=== PATIENT | male | born 1970 | race Caucasian/White ===

== ENCOUNTER 2021-04-26 10:26 | Outpatient (REF) | payer MEDICAID, SELFPAY ==
--- NOTE | ~2021-04-26 | XR_ITS ---
EXAMINATION: XR LUMBAR SPINE XR HIP, LEFT CLINICAL INFORMATION: Pain. COMPARISON: Lumbar spine radiographs dated 05/31/2010. TECHNIQUE: AP, lateral, and coned-down views of the lumbar spine. AP and frog-leg lateral views of the left hip. FINDINGS: Lumbar Spine: Normal vertebral body alignment. The lumbar lordosis is maintained. No acute fracture or subluxation. No loss of vertebral body height. Loss of intervertebral disc height with anterior endplate osteophytes at L1-L2, L2-L3, and L5-S1. Additional tiny anterior endplate osteophytes. Mild bilateral facet arthropathy at L4-L5 and L5-S1. No lytic or blastic osseous lesion. No abnormal soft tissue calcification. Left Hip: No acute fracture or dislocation. Mild joint space narrowing with acetabular subchondral sclerosis and tiny marginal osteophytes. No osseous erosion. Phleboliths within the pelvis. XR/XR hip LT min 2V IMPRESSION: LUMBAR SPINE: Mild multilevel degenerative disc disease as well as bilateral facet arthropathy at L4-L5 and L5-S1, new/increased when compared to the prior examination. LEFT HIP: Mild osteoarthritis.
--- NOTE | ~2021-04-26 | XR_ITS ---
EXAMINATION: XR LUMBAR SPINE XR HIP, LEFT CLINICAL INFORMATION: Pain. COMPARISON: Lumbar spine radiographs dated 05/31/2010. TECHNIQUE: AP, lateral, and coned-down views of the lumbar spine. AP and frog-leg lateral views of the left hip. FINDINGS: Lumbar Spine: Normal vertebral body alignment. The lumbar lordosis is maintained. No acute fracture or subluxation. No loss of vertebral body height. Loss of intervertebral disc height with anterior endplate osteophytes at L1-L2, L2-L3, and L5-S1. Additional tiny anterior endplate osteophytes. Mild bilateral facet arthropathy at L4-L5 and L5-S1. No lytic or blastic osseous lesion. No abnormal soft tissue calcification. Left Hip: No acute fracture or dislocation. Mild joint space narrowing with acetabular subchondral sclerosis and tiny marginal osteophytes. No osseous erosion. Phleboliths within the pelvis. XR/XR lumbar spine 4V min IMPRESSION: LUMBAR SPINE: Mild multilevel degenerative disc disease as well as bilateral facet arthropathy at L4-L5 and L5-S1, new/increased when compared to the prior examination. LEFT HIP: Mild osteoarthritis.
== END 2021-04-26 10:27 | disposition home or self-care (01) ==
LOC: HO.XRAY 10:26
PROVIDERS: Absent Provider Internal Medicine; PCP Internal Medicine; Visit Provider General Practice
DX: M54.89 Other dorsalgia (principal)
CPT/HCPCS: 72110; 73502

== ENCOUNTER 2021-07-14 02:08 | Emergency (ER) | payer MEDICAID, SELFPAY ==
--- NOTE | ~2021-07-14 | XR_ITS ---
EXAMINATION: XR FOOT, RIGHT CLINICAL INFORMATION: Toe pain COMPARISON: None TECHNIQUE: AP, lateral, and oblique views of the right foot. FINDINGS: Osseous alignment is anatomic. No acute fracture is seen. No significant focal soft tissue abnormality identified. XR/XR foot RT min 3V IMPRESSION: No acute findings.
[2021-07-14 02:16] VITALS: BP 154/82; PULSE 69; RESP 20; TEMP 36.6; O2SAT 98; BMI 30.4
--- NOTE | 2021-07-14 02:41 | ED_ITS ---
HPI - Extremity Injury (Lower) General Chief Complaint: Extremity Injury, Lower Stated Complaint: broken toe Time Seen by Provider: 07/14/21 02:19 Source: patient Mode of arrival: ambulatory History of Present Illness HPI Narrative: 51-year-old male presents 2nd toe of the right foot pain after hitting it on a wooden stool. Patient was able to initially go to sleep, but then woke up with the toe throbbing. Patient denies any medical conditions. Related Data Allergies Allergy/AdvReac Type Severity Reaction Status Date / Time No Known Allergies Allergy Verified 07/14/21 02:25 Review of Systems Review of Systems: Pertinent positives and negatives as stated in HPI 10 point review of systems is otherwise negative. PMFSH Past Medical History Source: nursing notes reviewed Social History Social History Advance Directives: No Advance Directives Information Provided: Yes Physical Exam Vital Signs: Vital Signs: Last Vital Signs Temp 97.8 F 07/14/21 02:16 Pulse 69 07/14/21 02:16 Resp 20 07/14/21 02:16 BP 154/82 H 07/14/21 02:16 Pulse Ox 98 07/14/21 02:16 BMI result Body Mass Index 30.4 VITAL SIGNS: Reviewed. GENERAL: Well developed, well nourished, in no acute distress. HEAD: Normocephalic/atraumatic EYES: PERRLA, EOMI OROPHARYNX: no oral lesions noted, posterior pharynx clear LUNGS: Normal breath sounds. SpO2<98> CARDIOVASCULAR: Regular rate and rhythm without noted murmurs ABDOMEN: Soft, non-tender, non-distended with bowel sounds. RIGHT FOOT: 2nd toe purplish bruising without noted deformity, but edema. Capillary refill less than 3 seconds and palpable DP/PT with sensation intact NEUROLOGIC: Alert and oriented x 4. Course Course Course Narrative: 51-year-old male with history and clinical presentation consistent with likely no on fracture of 2nd toe of right foot. Patient given combination analgesics for pain control. Review of all investigations negative for any acute findings and on re- evaluation patient has had some reduction in pain to that toe. He was encouraged to follow-up with his primary care provider in the next 1-2 days. Discharge Plan Discharge Clinical Impression: Pain and swelling of toe of right foot Patient Disposition: Home, Self-Care Instructions: Swollen Joint (ED) Additional Instructions: 1. Tylenol 1000 mg, orally, every 6 hours as needed for pain control. Do not exceed 4000 mg within 24 hours. 2. Ibuprofen 400 mg, orally with milk or food, every 6 hours as needed for pain control. Take this medication with Tylenol for increased symptom relief. 3. Recommend curtis taping your 2nd and 3rd toes together for added support. 4. Follow-up with your primary care provider in the next 2-3 days for re- evaluation further outpatient management. Return to the ER for acute worsening of symptoms.
[2021-07-14] MEDS: Acetaminophen 325 MG TABLET 975 MG PO (02:45)
== END 2021-07-14 03:30 | disposition home or self-care (01) ==
PROVIDERS: Emergency Provider Student in an Organized Health Care Education/Training Program
DX: M79.674 Pain in right toe(s) (principal); M79.89 Other specified soft tissue disorders
CPT/HCPCS: 73630; 99283

== ENCOUNTER 2021-09-08 17:22 | Emergency (ER) | payer MEDICAID, SELFPAY ==
[2021-09-08 17:27] VITALS: BP 167/81; PULSE 80; RESP 18; TEMP 36.6; O2SAT 96; BMI 34.3
--- NOTE | 2021-09-08 18:07 | ED_ITS ---
HPI - General Adult General Chief complaint: General Medical Stated complaint: accidently drank dish liquid Time Seen by Provider: 09/08/21 17:52 Source: patient Mode of arrival: ambulatory Limitations: no limitations History of Present Illness HPI narrative: Patient is a 51-year-old male presenting to the emergency department after accidentally ingesting dish detergent liquid 1 hour ago. He reports that he was washing dishes and put a drop of dish liquid into a glass, reports that he then got distracted and wanted to take Tylenol for headache at which point he filled that glass with water and then drink it. He reports only consuming 1 sip before tasting it then stopped. Currently, he is reporting that his throat feels itchy. Denies swelling lips tongue, throat. Denies choking sensation, neck pain, chest pain, palpitations, shortness of breath, nausea, vomiting, abdominal pain. He reports that he has not had anything additional to eat or drink since this occurred. Related Data Allergies Allergy/AdvReac Type Severity Reaction Status Date / Time No Known Allergies Allergy Verified 07/14/21 02:25 Review of Systems Verdana 4l Review of Systems: Verdana 4d [place] 4Bd Constitutional: [place] 4d No fever, chills, weakness or fatigue. [place] 4Bd HEENT: + throat irritation. [place] 4d No blurred vision, double vision. No sneezing, congestion, runny nose. [place] 4Bd Skin: [place] 4d No rash or itching. [place] 4Bd4Bd Cardiovascular: No chest pain, chest pressure or chest discomfort. No palpitations or pedal edema. Respiratory: No shortness of breath, cough or sputum production. Gastrointestinal: No anorexia, nausea, vomiting or diarrhea. No abdominal pain or blood in stool. Neurologic: No headache, dizziness, syncope, numbness or tingling in the extremities. Musculoskeletal: No muscle pain, back pain, joint pain or stiffness. Hematologic: No bleeding or bruising. Psychiatric:No depression or anxiety. Yes all other systems are reviewed and are negative PMFSH Past Medical History Attestation statement: The following information was validated with the patient. Social History Social History Advance Directives: No Advance Directives Information Provided: No Physical Exam Verdana 4l Vital Signs: Verdana 4d Verdana 4d Vital Signs: Verdana 4d Ver[place] 4Bd Last Vital Signs Verdana 4d [place] New 4d [place] New 4d Temp 97.9 F 09/08/21 17:27 [place] New 4d Pulse 80 09/08/21 17:27 [place] New 4d Resp 18 09/08/21 17:27 BP 167/81 H 09/08/21 17:27 Pulse Ox 96 09/08/21 17:27 BMI result Body Mass Index 34.3 Vital signs have been reviewed as normal and appeared to be correct. Blood pressure normal.? Heart rate normal.? Respiration rate normal. Temperature normal.? Oxygen saturation normal. Appearance: Alert.?Oriented to person, place and time. No acute distress.?Normal affect.? Head: Normocephalic, atraumatic. Eyes: Sclera white, conjunctiva pink. PERRL, 3 mm bilaterally. Nose: Nasal mucosa pink and moist with midline septum, nares patent bilaterally.? Mouth/ Throat: Oral mucosa pink and moist without lesions. Pharynx without erythema, tonsils symmetric, no adenopathy.? Neck: Normal inspection.? Neck supple.?? CVS: Heart sounds normal. Normal heart rate and rhythm.? Pulses normal.?? Respiratory: No respiratory distress.? Lung sounds clear to auscultation bilaterally?? Abdomen: Soft and non-tender. Normoactive bowel sounds. Skin: Skin warm and dry.? Normal skin color.? ? Extremities: No lower extremity edema.? Neuro: Moves all extremities spontaneously. Sensation intact bilaterally. No focal neuro deficits. Ambulates with normal steady gait. Course Course Course Narrative: Patient is a 51-year-old male being evaluated after ingesting very small amount of dish detergent liquid. He is nontoxic appearing, not tachycardic, no apparent respiratory distress. He is able to manage his airway, swallow secretions, and is not experiencing any nausea, persistent vomiting, or abdominal pain. He has no angioedema, pharyngeal erythema or ulcerations. It is unlikely that the amount consumed has caused any burning or ulcerations the oropharynx or esophagus. The itching sensation is experiencing is most likely due to localized irritation. I offered the patient Benadryl while in the emergency department, however reports that he drove himself here does not want to become sleepy, would prefer to take this at home. Patient able to tolerate a p.o. trial including food and liquids without complication. Discussed with patient reasons to return to the emergency department including mouth throat swelling, difficulty breathing, was persistent cough, shortness of breath chest pain, palpitations nausea persistent vomiting, abdominal pain, diarrhea, or any new or worsening symptoms or concerns. Patient be discharged home, questions answered, and he is agreeable with plan. Discharge Plan Discharge Clinical Impression: Ingestion of toxic substance Patient Disposition: Home, Self-Care Additional Instructions: You were evaluated in the emergency department after ingesting a small amount of additional liquid. As we discussed, you may use Benadryl as needed for the itching sensation shows persistent. You were able to tolerate eating and drinking while you were here which is very reassuring. As we discussed, please return to the emergency department if you develop mouth or throat swelling, difficulty breathing, persistent cough, shortness of breath, chest pain, palpitations, nausea, persistent vomiting, abdominal pain, diarrhea, or any new or worsening symptoms or concerns. Discharge Date/Time: 09/08/21 18:45
== END 2021-09-08 18:45 | disposition home or self-care (01) ==
PROVIDERS: Emergency Provider Emergency Medicine Emergency Medical Services; PCP Internal Medicine
DX: T65.891A Toxic effect of other specified substances, accidental (unintentional), initial encounter (principal); L29.9 Pruritus, unspecified; Y92.039 Unspecified place in apartment as the place of occurrence of the external cause
CPT/HCPCS: 99283

== ENCOUNTER 2022-09-26 08:05 | Outpatient (REF) | payer MEDICAID, SELFPAY ==
--- NOTE | ~2022-09-26 | XR_ITS ---
EXAMINATION: XR KNEE, LEFT CLINICAL INFORMATION: Injury to the left lower leg COMPARISON: None TECHNIQUE: Four views of the left knee. FINDINGS: No fracture or subluxation. Compartmental joint spaces are maintained. No joint effusion. The soft tissues are unremarkable. XR/XR knee LT 4V IMPRESSION: Normal left knee.
== END 2022-09-26 08:06 | disposition home or self-care (01) ==
LOC: HO.XRAY 08:05
PROVIDERS: PCP Internal Medicine; Visit Provider Pediatrics
DX: S89.92XA Unspecified injury of left lower leg, initial encounter (principal)
CPT/HCPCS: 73564

== ENCOUNTER → 2022-10-30 09:04 | Outpatient (BNVA) | payer MEDICAID, SELFPAY | PROVIDERS: PCP Internal Medicine; Visit Provider Orthopaedic Surgery | DX: M25.562 Pain in left knee (principal) | CPT/HCPCS: 99202 ==

== ENCOUNTER 2022-12-29 12:52 | Outpatient (REF) | payer MEDICAID, SELFPAY ==
--- NOTE | ~2022-12-29 | MR_ITS ---
EXAMINATION: MR KNEE WITHOUT CONTRAST, LEFT CLINICAL INFORMATION: Left knee pain and swelling following an injury. COMPARISON: Left knee radiographs dated 09/26/2022. TECHNIQUE: MRI of the knee without contrast was performed using routine sequences on a high-field scanner. FINDINGS: MENISCI: Medial Meniscus: Somewhat linear increased T2 signal within the intrasubstance of the meniscal body with possible extension to the inner margin which could indicate a nondisplaced tear. Lateral Meniscus: Intact LIGAMENTS: Cruciate: Intact Collateral: Mild edema adjacent to the medial collateral ligament consistent with a grade 1 sprain/partial tear. Intact fibular collateral ligament. EXTENSOR MECHANISM: Intact ARTICULAR CARTILAGE/BONE: Patellofemoral Compartment: Superior central trochlear articular cartilage full-thickness fissuring measuring up to 0.9 cm in craniocaudal dimension with minimal subchondral cystic change. Tiny marginal osteophytes. Medial Compartment: Focal, near full-thickness articular cartilage loss at the weight-bearing medial femoral condyle measuring approximately 1.4 x 0.9 cm (AP by ML). Just posterior and medial to this area, there is focal subchondral low T1/low T2 signal with prominent underlying marrow edema, consistent with a nondisplaced subchondral fracture. Lateral Compartment: Intact articular cartilage. JOINT FLUID AND BURSAE: Small joint effusion and small Mandel's cyst with mild synovitis. MR/MR knee LT wo con IMPRESSION: 1. Possible nondisplaced inner margin tear of the medial meniscal body. 2. Grade 1 sprain/partial tear of the medial collateral ligament. 3. Focal, near full-thickness articular cartilage loss at the weightbearing medial femoral condyle measuring up to 1.4 x 0.9 cm. Adjacent nondisplaced subchondral fracture with prominent underlying marrow edema at the weight-bearing medial femoral condyle. 4. Mild patellofemoral osteoarthritis. Small joint effusion and small Mandel's cyst with mild synovitis.
== END 2022-12-29 12:53 | disposition home or self-care (01) ==
LOC: HO.MRI 12:52
PROVIDERS: PCP Internal Medicine; Visit Provider Family Medicine
DX: M25.562 Pain in left knee (principal); G89.29 Other chronic pain
CPT/HCPCS: 73721